=== PATIENT | male | born 1960 | race Caucasian/White ===

== ENCOUNTER 2016-10-27 10:32 | Emergency (ER) | payer BC, MEDICARE ==
[~2016-10-27] VITALS: Ht 200.7 cm; Wt 59.0 kg
[~2016-10-27 10:32] MED LIST: ALBU17AE3 IH; BUDE6HFA IH; CYCL10TA9 PO; HYDR-3061 PO; HYDR-3820 PO; LISI-552 PO; LISI20TA PO; OMEP20TA7 PO; PRD10T PO; RT-ALBUINH IH; SIMV20TA3 PO; TRAZ150T42 PO
--- NOTE | 2016-10-27 11:22 | ED Upper Extremity ---
General Chief Complaint: Upper Extremity Stated Complaint: LT ARM PAIN//FALL Nursing Triage Note: AMB TO ED FELL LAST NIGHT ON L ELBOW SWELLING AND PAIN AT SITE. Nursing Sepsis Screen: No Definite Risk Source: patient Exam Limitations: no limitations History of Present Illness Time seen by provider: 11:19 Initial Comments This 56-year-old white male presents after he sustained an injury to his left elbow last night when he inadvertently slipped and fell striking the olecranon of his left elbow. The patient also sustained an abrasion anterior aspect of his left knee. The patient's pain is primarily over the left elbow. Other than abrasion left knee the patient has no complaints and does not want to have the left knee x-rayed. The patient's last tetanus shot was more than 5 years ago. Patient's complaint of sharp nonradiating severe pain in the left elbow made worse with pronation and supination. Patient denies associated injury to the left shoulder or wrist. Patient denies other injury and his accident. Allergies and Home Medications Allergies Coded Allergies: No Known Drug Allergies (Verified , 01/28/08) Home Medications Albuterol Sulfate 8.5 Gm Hfa.aer.ad, 1-2 PUFF IH PRN, (Reported) Budesonide/Formoterol Fumarate 10.2 Gm Hfa.aer.ad, 2 PUFF IH BID, (Reported) Hydrocodone/Acetaminophen 1 Each Tablet, 1 TAB PO EVERY 4-6 HOURS, (Reported) LAST FILLED 02/17/15 #120 Lisinopril 20 Mg Tablet, 20 MG PO DAILY, (Reported) Omeprazole 20 Mg Tablet.dr, 20 MG PO DAILY, (Reported) Simvastatin 20 Mg Tablet, 20 MG PO DAILY, (Reported) Trazodone Hcl 150 Mg Tablet, 150 MG PO HS, (Reported) Constitutional: No chills, No fever EENTM: no symptoms reported Respiratory: No cough Cardiovascular: No chest pain Gastrointestinal: No nausea, No vomiting Genitourinary: no symptoms reported Musculoskeletal: see HPI, joint pain (left elbow.) Skin: other (abrasion left knee.) Psychiatric/Neurological: No Symptoms Reported Past Ipoqlsh-Kfcxyt-Xndpht Hx Patient Social History Alcohol Use: Occasionally Uses Recreational Drug Use: No Smoking Status: Current Everyday Smoker Type Used: Cigarettes Recent Foreign Travel: No Contact w/Someone Who Travel: No Recent Infectious Disease Expo: No Recent Hopitalizations: Yes Immunizations Up To Date Date of Pneumonia Vaccine: Mar 06, 2014 Date of Influenza Vaccine: Feb 11, 2015 Surgeries HX Surgeries: Yes (2 NECK SX, 2 HERNIA SX, R HAND SX, LEG SKIN GRAFTS) Respiratory Hx Respiratory Disorders: Yes (COPD, SEASON ALLERGIES) Respiratory Disorders: COPD Cardiovascular Hx Cardiac Disorders: No Cardiac Disorders: Hypertension Neurological Hx Neurological Disorders: No Reproductive System Hx Reproductive Disorders: No Sexually Transmitted Disease: No HIV/AIDS: No Genitourinary Hx Genitourinary Disorders: No Gastrointestinal Hx Gastrointestinal Disorders: No Gastrointestinal Disorders: Gastroesophageal Reflux Musculoskeletal Hx Musculoskeletal Disorders: Yes (CHRONIC NECK PAIN, ARTHRITIS BACK) Endocrine Hx Endocrine Disorders: No HEENT HX ENT Disorders: No Cancer Hx Cancer: No Psychosocial Hx Psychiatric Problems: Yes Behavioral Health Disorders: Depression Integumentary HX Skin/Integumentary Disorder: Yes (DERMATITIS) Blood Transfusions Hx Blood Disorders: No Adverse Reaction to a Blood Tr: No Reviewed Nursing Assessment Reviewed/Agree w Nursing PMH: Yes Family Medical History Significant Family History: No Pertinent Family Hx Family Medial History: Patient reports no known family medical history. Physical Exam Vital Signs Vital Sign - Last 12Hours 10/27/16 10:40 Temp 99.0 Pulse 140 Resp 18 B/P (MAP) 146/114 Capillary Refill : Less Than 3 Seconds General Appearance: mild distress HEENT: normal ENT inspection Neck: normal inspection Cardiovascular: regular rate, rhythm Respiratory: lungs clear Gastrointestinal: non tender Back: normal inspection Shoulder: normal inspection, non-tender, no evidence of injury Elbow/Forearm: Left, ecchymosis, pain Wrist: Yes normal inspection, Yes non-tender, Yes no evidence of injury Hand: normal inspection, non-tender, no evidence of injury Neurologic/Tendon: normal sensation, normal motor functions Neurologic/Psychiatric: no motor/sensory deficits, alert, normal mood/affect, oriented x 3 Skin: other (abrasion anterior aspect left knee) Progress/Results/Core Measures Results/Orders My Orders Orders - DOE COLON MD Fentanyl Injection (Sublimaze Injection (10/27/16 11:30) Dipht,Pertuss(Acell),Tet Adult (Boostrix (10/27/16 11:30) Elbow, Left, 3 Views (10/27/16 11:17) Medications Given in ED Current Medications Medications Dose Ordered Sig/Adilson Route Start Time Stop Time Status Last Admin Dose Admin Diphtheria/ Tetanus/Acell Pertussis 0.5 ml ONCE ONCE IM 10/27/16 11:30 10/27/16 11:31 DC 10/27/16 11:37 0.5 ML Fentanyl Citrate 50 mcg ONCE ONCE IJ 10/27/16 11:30 10/27/16 11:31 DC 10/27/16 11:35 50 MCG Vital Signs/I&O Vital Sign - Last 12Hours 10/27/16 10:40 Temp 99.0 Pulse 140 Resp 18 B/P (MAP) 146/114 Blood Pressure Mean: 125 Progress Note : Time: 12:19 Progress Note Patient received TDap and IM Fentanyl with good improvement in his discomfort. X-ray of the left elbow demonstrated a significant effusion but no evidence of fracture or dislocation. Patient's left arm was placed in a sling. The abrasion to the left knee was cleaned and dressed. Departure Impression Impression: Primary Impression: Elbow contusion Qualified Codes: S50.02XA - Contusion of left elbow, initial encounter Additional Impression: Knee abrasion Qualified Codes: S80.212A - Abrasion, left knee, initial encounter Disposition: HOME, SELF-CARE Condition: Improved Departure-Patient Inst. Decision time for Depature: 12:21 Referrals: ARAM ARAYA DO (PCP/Family) Primary Care Physician Patient Instructions: Contusion (DC) Add. Discharge Instructions: Vicodin for pain. Sling for comfort. Close follow-up with your doctor on Sunday. Return if any problems. All discharge instructions reviewed with patient and/or family. Voiced understanding. DOE COLON MD Oct 27, 2016 11:22
[2016-10-27] MEDS ORDERED: fentaNYL INJECTION 100 MCG/2 ML AMP IJ ONE (11:30)
[2016-10-27] MEDS ORDERED: TETANUS,DIPTH,PERTUSS P/F (BOOSTRIX) 0.5 ML VIAL IM ONE (11:30)
--- NOTE | 2016-10-27 12:08 | Diagnostic Imaging Report ---
INDICATION: Slipped on concrete and landed on elbow. FINDINGS: There is a large joint effusion present. Radius and ulna are in good alignment with the capitellum and trochlea. No fractures are demonstrated. There is a large enthesophyte along the triceps tendon attachment. There is mild soft tissue calcification also along the medial collateral ligament at the humeral epicondyle. IMPRESSION: 1. There is rather large joint effusion noted. 2. No fractures or dislocations demonstrated. Dictated by: Dictated on workstation # [id number]
[2016-10-27 12:46] VITALS: BP 172/111
== END 2016-10-27 12:46 | disposition home or self-care (01) ==
LOC: EDUNIT# 10:32 → ER 10:35
DX: S50.02XA Contusion of left elbow, initial encounter (principal); S80.212A Abrasion, left knee, initial encounter; J44.9 Chronic obstructive pulmonary disease, unspecified; I10 Essential (primary) hypertension; F17.210 Nicotine dependence, cigarettes, uncomplicated; W01.10XA Fall on same level from slipping, tripping and stumbling with subsequent striking against unspecified object, initial encounter
CPT/HCPCS: 73080; 90715; 99282

== ENCOUNTER 2017-05-03 13:39 | Inpatient (IN) | payer BC, MEDICARE ==
[2017-05-03] VITALS (8 sets, daily range): BP systolic 132–146; BP diastolic 94–109
[~2017-05-03] VITALS: Ht 175.3 cm; Wt 53.5 kg
--- OUTSIDE RECORDS SUMMARY | 2017-05-03 14:42 | XMS REPORT | Continuity of Care Document ---
Author Author [facility] Organization [facility] Address Unknown Phone Unavailable Allergies Active Description Code Type Severity Reaction Onset Reported/Identified Relationship to Patient Clinical Status Yes No Known Drug Allergies [id number] Drug Allergy Unknown N/A 12/03/2015 Medications There is no data. Problems Date Dx Coded Attending Type Code Diagnosis Diagnosed By 02/05/2012 Ot 211.3 BENIGN NEOPLASM LG BOWEL 02/05/2012 Ot 493.90 ASTHMA, UNSPECIFIED 02/05/2012 Ot V16.0 FAMILY HX-GI MALIGNANCY 02/05/2012 Ot V58.69 OTH MED,LT, CURRENT USE 02/05/2012 Ot V76.51 SCREEN MAL NEOP-COLON 03/01/2012 Ot 351.0 MEJIA'S PALSY 03/01/2012 Ot 782.0 SKIN SENSATION DISTURB 03/01/2012 Ot V04.81 ND FOR PROPHYLACTIC VACCIN AND INOCULATI 02/19/2015 Ot V72.84 03/04/2015 ARAM ARAYA DO Ot F17.200 03/04/2015 ARAM ARAYA DO Ot R63.4 03/11/2015 ARAM ARAYA DO Ot F17.200 03/11/2015 ARAM ARAYA DO Ot R63.4 04/08/2015 ARAM ARAYA DO Ot F17.200 04/08/2015 ARAM ARAYA DO Ot R63.4 04/08/2015 ARAM ARAYA DO Ot F17.200 04/08/2015 ARAM ARAYA DO Ot R63.4 04/08/2015 ARAM ARAYA DO Ot F17.200 04/08/2015 ARAM ARAYA DO Ot R63.4 04/09/2015 ARAM ARAYA DO Ot E78.5 HYPERLIPIDEMIA, UNSPECIFIED 04/09/2015 ARAM ARAYA DO Ot E87.1 HYPO-OSMOLALITY AND HYPONATREMIA 04/09/2015 ARAM ARAYA DO Ot F10.10 ALCOHOL ABUSE, UNCOMPLICATED 04/09/2015 ARAM ARAYA DO Ot F17.210 NICOTINE DEPENDENCE, CIGARETTES, UNCOMPL 04/09/2015 ARAM ARAYA DO Ot I10 ESSENTIAL (PRIMARY) HYPERTENSION 04/09/2015 ARAM ARAYA DO Ot I25.10 ATHSCL HEART DISEASE OF [place] CORONARY 04/09/2015 ARAM ARAYA DO Ot J44.9 CHRONIC OBSTRUCTIVE PULMONARY DISEASE, U 04/09/2015 ARAM ARAYA DO Ot R07.9 CHEST PAIN, UNSPECIFIED 04/09/2015 ARAM ARAYA DO Ot Z82.49 FAMILY HX OF ISCHEM HEART DIS AND OTH DI 04/09/2015 AARM ARAYA DO Ot E78.5 04/09/2015 ARAM ARAYA DO Ot E87.1 04/09/2015 ARAM ARAYA DO Ot F10.10 04/09/2015 ARAM ARAYA DO Ot F17.210 04/09/2015 ARAM ARAYA DO Ot I10 04/09/2015 ARAM ARAYA DO Ot I25.10 04/09/2015 ARAM ARAYA DO Ot J44.9 04/09/2015 ARAM ARAYA DO Ot R07.9 04/09/2015 ARAM ARAYA DO Ot Z82.49 04/15/2015 ARAM ARAYA DO Ot F17.200 04/15/2015 ARAM ARAYA DO Ot R63.4 04/15/2015 Ot V72.84 04/15/2015 ARAM ARAYA DO Ot F17.200 04/15/2015 ARAYAARAM OAKES DO Ot R63.4 04/27/2015 ARAYAARAM OAKES DO Ot F17.200 04/27/2015 ARAYAARAM OAKES DO Ot R63.4 04/27/2015 DEMETRIA VALDERRAMA FACC, NIRAV FACP CCDS Ot J43.8 04/27/2015 DEMETRIA VALDERRAMA FACGriselda, ALI FACP CCDS Ot R06.02 04/27/2015 DEMERTIA VALDERRAMA FACC, ALI FACP CCDS Ot R07.89 04/29/2015 DEMETRIA VALDERRAMA FACGriselda, NIRAV FACP CCDS Ot J43.8 04/29/2015 DEMETRIA VALDERRAMA [facility], ALI FACP CCDS Ot R06.02 04/29/2015 DEMETRIA VALDERRAMA FAC, ALI FACP CCDS Ot R07.89 05/13/2015 DEMETRIA VALDERRAMA FAC, ALI FACP CCDS Ot J43.8 05/13/2015 DEMETRIA VALDERRAMA FAC, ALI FACP CCDS Ot R06.02 05/13/2015 DEMETRIA VALDERRAMA FAC, ALI FACP CCDS Ot R07.89 05/25/2015 ARAM ARAYA DO Ot M79.674 06/02/2015 ARAM ARAYA DO Ot M79.674 06/09/2015 ARAM ARAYA DO Ot F17.200 06/09/2015 ARAM ARAYA DO Ot R63.4 06/09/2015 DEMETRIA ABEBE, NIRAV ABEBEP CCDS Ot J43.8 06/09/2015 DEMETRIA VALDERRAMA [facility], NIRAV FACP CCDS Ot R06.02 06/09/2015 DEMETRIA ABEBE, NIRAV FACP CCDS Ot R07.89 06/09/2015 ARAM ARAYA DO Ot M79.674 08/19/2015 ARAM ARAYA DO Ot M79.674 12/02/2015 DOE TORRES MD Ot Z01.818 ENCOUNTER FOR OTHER PREPROCEDURAL EXAMIN 12/02/2015 DOE TORRES MD Ot Z01.818 ENCOUNTER FOR OTHER PREPROCEDURAL EXAMIN 12/03/2015 DOE TORRES MD Ot K62.1 RECTAL POLYP 12/03/2015 DOE TORRES MD Ot Z12.11 ENCOUNTER FOR SCREENING FOR MALIGNANT NE 12/10/2015 DOE TORRES MD Ot K62.1 RECTAL POLYP 12/10/2015 DOE TORRES MD Ot Z12.11 ENCOUNTER FOR SCREENING FOR MALIGNANT NE 12/22/2015 Ot V72.84 EXAM PRE- OPERATIVE NOS 12/22/2015 ARAM ARAYA DO Ot F17.200 NICOTINE DEPENDENCE, UNSPECIFIED, UNCOMP 12/22/2015 ARAM ARAYA DO Ot R63.4 ABNORMAL WEIGHT LOSS 12/22/2015 DEMETRIA VALDERRAMA [facility], NIRAV FACP CCDS Ot J43.8 OTHER EMPHYSEMA 12/22/2015 DEMETRIA ABEBE, ALI FACP CCDS Ot R06.02 SHORTNESS OF BREATH 12/22/2015 DEMETRIA VALDERRAMA FACC, ALI FACP CCDS Ot R07.89 OTHER CHEST PAIN 12/22/2015 ARAM ARAYA DO Ot M79.674 PAIN IN RIGHT TOE(S) 01/07/2016 ARAM ARAYA DO Ot F17.200 NICOTINE DEPENDENCE, UNSPECIFIED, UNCOMP 01/07/2016 ARAM ARAYA DO Ot R63.4 ABNORMAL WEIGHT LOSS 01/07/2016 DEMETRIA VALDERRAMA FACC, ALI FACP CCDS Ot J43.8 OTHER EMPHYSEMA 01/07/2016 DEMETRIA VALDERRAMA FACC, ALI FACP CCDS Ot R06.02 SHORTNESS OF BREATH 01/07/2016 DEMETRIA VALDERRAMA FACC, ALI FACP CCDS Ot R07.89 OTHER CHEST PAIN 01/07/2016 ARAM ARAYA DO Ot M79.674 PAIN IN RIGHT TOE(S) 04/21/2016 ARAM ARAYA DO Ot F17.200 NICOTINE DEPENDENCE, UNSPECIFIED, UNCOMP 04/21/2016 ARAM ARAYA DO Ot R63.4 ABNORMAL WEIGHT LOSS 04/21/2016 DEMETRIA VALDERRAMA FACC, ALI FACP CCDS Ot J43.8 OTHER EMPHYSEMA 04/21/2016 DEMETRIA VALDERRAMA FACC, ALI FACP CCDS Ot R06.02 SHORTNESS OF BREATH 04/21/2016 DEMETRIA VALDERRAMA FACC, ALI FACP CCDS Ot R07.89 OTHER CHEST PAIN 04/21/2016 ARAM ARAYA DO Ot M79.674 PAIN IN RIGHT TOE(S) 07/20/2016 DEMETRIA VALDERRAMA FACC ALI FACP CCDS Ot J43.8 OTHER EMPHYSEMA 07/20/2016 DEMETRIA VALDERRAMA FACC, ALI FACP CCDS Ot R06.02 SHORTNESS OF BREATH 07/20/2016 DEMETRIA VALDERRAMA FACC, ALI FACP CCDS Ot R07.89 OTHER CHEST PAIN 07/20/2016 ARAM ARAYA DO Ot M79.674 PAIN IN RIGHT TOE(S) 09/11/2016 DEMETRIA VALDERRAMA FACC ALI FACP CCDS Ot J43.8 OTHER EMPHYSEMA 09/11/2016 DEMETRIA VALDERRAMA FACC, ALI FACP CCDS Ot R06.02 SHORTNESS OF BREATH 09/11/2016 DEMETRIA VALDERRAMA FACC, ALI FACP CCDS Ot R07.89 OTHER CHEST PAIN 10/27/2016 ARAM ARAYA DO Ot F17.200 NICOTINE DEPENDENCE, UNSPECIFIED, UNCOMP 10/27/2016 ARAM ARAYA DO Ot R63.4 ABNORMAL WEIGHT LOSS 10/27/2016 DEMETRIA VALDERRAMA [facility] J43.8 OTHER EMPHYSEMA 10/27/2016 DEMETRIA VALDERRAMA FAC, [facility] Ot R06.02 SHORTNESS OF BREATH 10/27/2016 DEMETRIA VALDERRAMA [facility], [facility] Ot R07.89 OTHER CHEST PAIN 10/27/2016 ARAM ARAYA DO Ot M79.674 PAIN IN RIGHT TOE(S) 10/27/2016 DOE COLON MD Ot F17.210 NICOTINE DEPENDENCE, CIGARETTES, UNCOMPL 10/27/2016 DOE COLON MD Ot I10 ESSENTIAL (PRIMARY) HYPERTENSION 10/27/2016 DOE COLON MD Ot J44.9 CHRONIC OBSTRUCTIVE PULMONARY DISEASE, U 10/27/2016 DOE COLON MD Ot S50.02XA CONTUSION OF LEFT ELBOW, INITIAL ENCOUNT 10/27/2016 DOE COLON MD Ot S59.902A UNSPECIFIED INJURY OF LEFT ELBOW, INITIA 10/27/2016 DOE COLON MD Ot S80.212A ABRASION, LEFT KNEE, INITIAL ENCOUNTER 10/27/2016 DOE COLON MD Ot W01.10XA FALL SAME LEV FROM SLIP/TRIP W STRIKE AG 11/03/2016 DOE COLON MD Ot F17.210 NICOTINE DEPENDENCE, CIGARETTES, UNCOMPL 11/03/2016 DOE COLON MD Ot I10 ESSENTIAL (PRIMARY) HYPERTENSION 11/03/2016 DOE COLON MD Ot J44.9 CHRONIC OBSTRUCTIVE PULMONARY DISEASE, U 11/03/2016 DOE COLON MD Ot S50.02XA CONTUSION OF LEFT ELBOW, INITIAL ENCOUNT 11/03/2016 DOE COLON MD Ot S59.902A UNSPECIFIED INJURY OF LEFT ELBOW, INITIA 11/03/2016 DOE COLON MD Ot S80.212A ABRASION, LEFT KNEE, INITIAL ENCOUNTER 11/03/2016 DOE COLON MD Ot W01.10XA FALL SAME LEV FROM SLIP/TRIP W STRIKE AG 12/20/2016 ARAM ARAYA DO Ot F17.200 NICOTINE DEPENDENCE, UNSPECIFIED, UNCOMP 12/20/2016 ARAM ARAYA DO Ot R63.4 ABNORMAL WEIGHT LOSS 12/20/2016 DEMETRIA VALDERRAMA FACC, NIRAV ABEBEP CCDS Ot J43.8 OTHER EMPHYSEMA 12/20/2016 DEMETRIA VALDERRAMA FACC, NIRAV [place] CCDS Ot R06.02 SHORTNESS OF BREATH 12/20/2016 DEMETRIA VALDERRAMA FACC, NIRAV [place] CCDS Ot R07.89 OTHER CHEST PAIN 12/20/2016 ARAM ARAYA DO Ot M79.674 PAIN IN RIGHT TOE(S) Procedures There is no data. Results There is no data. Encounters ACCT No. Visit Date/Time Discharge Status Pt. Type Provider Facility Loc./Unit Complaint [id number] 10/27/2016 10:35:00 10/27/2016 12:46:00 DIS Emergency DOE COLON MD [facility] ER LT ARM PAIN//FALL [id number] 12/22/2015 09:20:00 12/22/2015 23:59:59 CLS Preadmit ARAM ARAYA DO [facility] REHAB BACK PAIN WITH RADICULOPATHY [id number] 12/03/2015 07:41:00 12/03/2015 11:00:00 DIS Outpatient DOE TORRES MD [facility] SDC HX COLON POLPYS [id number] 12/02/2015 14:28:00 12/02/2015 14:31:00 DIS Outpatient DOE TORRES MD [facility] PREOP HX COLON POLPYS [id number] 05/20/2015 10:47:00 05/20/2015 23:59:59 CLS Outpatient ARAM ARAYA DO [facility] RAD PAIN RIGHT 5TH MTP JOINT [id number] 04/15/2015 09:15:00 04/15/2015 23:59:59 CLS Outpatient NIRAV AUGUSTIN MD, FACC, FACP CCDS [facility] CARD SOB,CHEST DISCOMFORT,COPD [id number] 04/08/2015 20:13:00 04/09/2015 11:55:00 DIS Inpatient ARAM ARAYA DO [facility] 4TH HYPONATREMIA,CHEST PAIN,ETOH ABUSE [id number] 02/19/2015 09:47:00 02/19/2015 23:59:59 CLS Outpatient ARAM ARAYA DO [facility] RAD SMOKER,WEIGHT LOSS [id number] 02/29/2012 22:36:00 Document Registration [id number] 02/05/2012 08:59:00 Document Registration [id number] 02/02/2012 08:12:00 Document Registration
[2017-05-03] MEDS ORDERED: DILTIAZEM IV FOR DRIP 125 MG in NS (IVPB) 100 ML IV SCH (14:45)
[2017-05-03 15:11] LABS: BASOPHILS % (AUTO) 0 % (0-10); EOSINOPHILS % (AUTO) 0 % (0-10); LYMPHOCYTES # (AUTO) 0.9 X 10^3 (1.0-4.0); LYMPHOCYTES % (AUTO) 13 % (12-44); MEAN CORPUSCULAR HEMOGLOBIN 38 PG (25-34); MEAN CORPUSCULAR HGB CONC 36 G/DL (32-36); MEAN CORPUSCULAR VOLUME 103 FL (80-99); MEAN PLATELET VOLUME 8.5 FL (7.4-10.4); MONOCYTES # (AUTO) 0.6 X 10^3 (0.0-1.0); MONOCYTES % (AUTO) 9 % (0-12); NEUTROPHILS # (AUTO) 5.2 X 10^3 (1.8-7.8); NEUTROPHILS % (AUTO) 77 % (42-75); PLATELET COUNT 187 10^3/uL (130-400); RED CELL DISTRIBUTION WIDTH 12.1 % (10.0-14.5); WHITE BLOOD COUNT 6.8 10^3/uL (4.3-11.0)
--- NOTE | 2017-05-03 15:22 | Consultation-Cardiology ---
HPI-Cardiology Cardiology Consultation: Date of Consultation 05/03/17 Time Seen by Provider: 15:45 Date of Admission 05-03-17 Attending Physician America Wood MD Admitting Physician Chet Rodgers DO Consulting Physician Brigido Martinez MD HPI: Chief Complaint: Tachycardia Mr. Wills is a 57 year old male who has been admitted to ICU [address] Rodgers's office. He reports he was seen at Dr. Escobar office today for a routine check up. He reports he was found to have a fast HR in the office of approx 158. He states he has not been having any palpitations recently. He reports he has had palpitations in the past, but felt it was d/t his COPD. No syncope or near syncope. He reports chronic dyspnea d/t his CODP. He feels the SOB has been a little bit worse the last few days. He does report diarrhea for the last couple days after eating [place] food. No c/o n/v. He reports he was carrying a metal toy truck las week and he became dizzy. He reports he fell landing in the truck with the right side of his chest. He states the right side is tender to palpation and movement. He does not report any LE edema. He continues to smoke cigs. Review of Systems-Cardiology Review of Systems Constitutional: malaise Eyes: No blindness, No blurred vision Ears/Nose/Throat: No nasal drainage, No throat pain Respiratory: As described under HPI Cardiovascular: As described under HPI Gastrointestinal: diarrhea Genitourinary: No dysuria Musculoskeletal: As describe under HPI Skin: No rash, No ulcerations Psychiatric/Neurological: No focal weakness, No syncope Hematologic: No bleeding abnormalities YHD-Qqwhhb-Nanuaw Hx Patient Social History Type Used: Cigarettes Recent Foreign Travel: No Immunizations Up To Date Date of Pneumonia Vaccine: Mar 06, 2014 Date of Influenza Vaccine: Feb 11, 2015 Past Medical History PMH As described under Assessment. Family Medical History Family Medical History: He does not report any family h/o CAD or premature SCD. Family History: Patient reports no known family medical history. Allergies and Home Medications Allergies Coded Allergies: No Known Drug Allergies (Verified , 01/28/08) Home Medications Albuterol Sulfate 8.5 Gm Hfa.aer.ad, 1-2 PUFF IH Q4H PRN for SHORTNESS OF BREATH , (Reported) Apixaban 5 Mg Tablet, 5 MG PO BID, #60 Ref 3 Prescribed by: DEDRA PERDUE on 05/04/17 0857 Budesonide/Formoterol Fumarate 10.2 Gm Hfa.aer.ad, 2 PUFF IH BID, (Reported) Cetirizine HCl 10 Mg Tablet, 10 MG PO DAILY, (Reported) Clonazepam 1 Mg Tablet, 1 MG PO HS, (Reported) Hydrocodone/Acetaminophen 1 Each Tablet, 1 TAB PO Q6H PRN for PAIN-MODERATE, ( Reported) Lisinopril 40 Mg Tablet, 40 MG PO HS, (Reported) Meloxicam 7.5 Mg Tablet, 7.5 MG PO DAILY PRN for PAIN-MILD, (Reported) Metoprolol Succinate 100 Mg Tab.er.24h, 100 MG PO DAILY, #30 Ref 5 Prescribed by: DEDRA PERDUE on 05/04/1757 Omeprazole 20 Mg Tablet.dr, 20 MG PO DAILY, (Reported) Trazodone HCl 100 Mg Tablet, 100 MG PO HS, (Reported) Physical Exam-Cardiology Physical Exam Vital Signs/I&O Vital Sign - Last 12Hours 05/03/17 05/04/17 05/04/17 05/04/17 21:00 00:00 00:28 01:00 Temp 98.3 Pulse 69 82 61 Resp 10 16 B/P (MAP) 134/94 (107) 111/63 (79) Pulse Ox 98 96 O2 Delivery Room Air Room Air Room Air 05/04/17 05/04/17 05/04/17 05/04/17 03:36 04:00 07:00 08:07 Temp 97.2 98.4 Pulse 62 64 66 Resp 16 16 B/P (MAP) 111/77 (88) 125/82 (96) Pulse Ox 98 98 O2 Delivery Room Air Room Air Room Air 05/04/17 08:15 O2 Delivery Room Air Intake and Output 05/04/17 00:00 Intake Total 1000 ml Output Total 1250 ml Balance -250 ml Capillary Refill : Constitutional: AAO x 3 HEENT: EOMI, hearing is well preserved, oral hygience is good, No xanthelasmas are seen Neck: No carotid bruit Respiratory: No accessory muscle use, No respiratory distress, chest expansion is symmetric, chest is bilaterally symmetric, lungs clear to auscultation, other (prolonged expiratory phase) Cardiovascular: regular rate-rhythm, No JVD, No edema, tachycardia Gastrointestinal: soft, round, audible bowel sounds Rectal: deferred Extremities: no lower extremity edema bilateral Neurologic/Psychiatric: grossly intact Skin: No rash, No ulcerations Data Review Labs Laboratory Tests 05/03/17 15:01: White Blood Count 6.8, Red Blood Count 3.60L, Hemoglobin 13.5, Hematocrit 37L, Mean Corpuscular Volume 103H, Mean Corpuscular Hemoglobin 38H, Mean Corpuscular Hemoglobin Concent 36, Red Cell Distribution Width 12.1, Platelet Count 187, Mean Platelet Volume 8.5, Neutrophils (%) (Auto) 77H, Lymphocytes (%) (Auto) 13 , Monocytes (%) (Auto) 9, Eosinophils (%) (Auto) 0, Basophils (%) (Auto) 0, Neutrophils # (Auto) 5.2, Lymphocytes # (Auto) 0.9L, Monocytes # (Auto) 0.6, Eosinophils # (Auto) 0.0, Basophils # (Auto) 0.0, Prothrombin Time 12.6, INR Comment 0.9, Sodium Level 128L, Potassium Level 4.3, Chloride Level 93L, Carbon Dioxide Level 27, Anion Gap 8, Blood Urea Nitrogen 8, Creatinine 0.75, Estimat Glomerular Filtration Rate > 60, BUN/Creatinine Ratio 11, Glucose Level 90, Calcium Level 8.9, Total Bilirubin 0.8, Aspartate Amino Transf (AST/SGOT) 28, Alanine Aminotransferase (ALT/SGPT) 20, Alkaline Phosphatase 82, Total Protein 7.5, Albumin 4.1, Serum Alcohol 51H 05/03/17 15:25: Thyroid Stimulating Hormone (TSH) 0.53 05/04/17 04:30: White Blood Count 4.0L, Red Blood Count 3.28L, Hemoglobin 12.1L, Hematocrit 34L , Mean Corpuscular Volume 104H, Mean Corpuscular Hemoglobin 37H, Mean Corpuscular Hemoglobin Concent 35, Red Cell Distribution Width 12.2, Platelet Count 157, Mean Platelet Volume 9.1, Neutrophils (%) (Auto) 49, Lymphocytes (%) (Auto) 35, Monocytes (%) (Auto) 13H, Eosinophils (%) (Auto) 3, Basophils (%) ( Auto) 1, Neutrophils # (Auto) 2.0, Lymphocytes # (Auto) 1.4, Monocytes # (Auto) 0.5, Eosinophils # (Auto) 0.1, Basophils # (Auto) 0.0, Prothrombin Time 14.2, INR Comment 1.1, Sodium Level 133L, Potassium Level 4.2, Chloride Level 99, Carbon Dioxide Level 25, Anion Gap 9, Blood Urea Nitrogen 10, Creatinine 0.75, Estimat Glomerular Filtration Rate > 60, BUN/Creatinine Ratio 13, Glucose Level 78, Calcium Level 8.1L ECG Impression ECG Initial ECG Rhythm: S.Tach A/P-Cardiology Assessment/Admission Diagnosis New onset of reported atrial flutter with RVR MPI of 04/15/15 does not show myocard ischemia or infarction; LVEF is 66% Echo of 04/15/15 shows LVEF 50-55%, triv to mild MR, PASP 25-30 mmHg COPD Chronic tobacco use, cessation advised Hypertension Degenerative disc disease of the cervical spine Chronic ETOH abuse Right sided chest pain following a non-syncopal fall last week (reproducible with palpation) Hyponatremia HTN DEDRA PERDUEP May 03, 2017 15:22
[2017-05-03 15:23] LABS: INR 0.9 (0.8-1.4); PROTHROMBIN TIME PATIENT 12.6 SEC (12.2-14.7)
[2017-05-03 15:30] LABS: ALANINE AMINOTRANSFERASE 20 U/L (0-55); ALBUMIN 4.1 GM/DL (3.2-4.5); ANION GAP 8 MMOL/L (5-14); ASPARTATE AMINO TRANSFERASE 28 U/L (5-34); BILIRUBIN,TOTAL 0.8 MG/DL (0.1-1.0); BLOOD UREA NITROGEN 8 MG/DL (7-18); BUN/CREATININE RATIO 11; CALCIUM 8.9 MG/DL (8.5-10.1); CARBON DIOXIDE 27 MMOL/L (21-32); CHLORIDE 93 MMOL/L (98-107); CREATININE SERUM 0.75 MG/DL (0.60-1.30); GFR ESTIMATED > 60; GLUCOSE 90 MG/DL (70-105); POTASSIUM 4.3 MMOL/L (3.6-5.0); SODIUM 128 MMOL/L (135-145); TOTAL PROTEIN 7.5 GM/DL (6.4-8.2)
[2017-05-03] MEDS ORDERED: RT-ALBUTEROL SULF 2.5 MG/3 ML PRE-MIX VIAL INH PRN ×2 (16:00→16:15)
[2017-05-03] MEDS ORDERED: RT-ALBUTEROL SULF 2.5 MG/3 ML PRE-MIX VIAL INH SCH (16:15)
[2017-05-03] MEDS ORDERED: CATHETER FLUSH 10 ML SYR IV PRN (16:15)
[2017-05-03] MEDS ORDERED: TRAZ100T92 PO (16:16)
[2017-05-03] MEDS ORDERED: CLON1TAB3 PO (16:16)
[2017-05-03] MEDS ORDERED: HYDR-3816 PO (16:16)
[2017-05-03] MEDS ORDERED: LISI40TA PO (16:16)
[2017-05-03] MEDS ORDERED: BUDE10.2 IH (16:23)
[2017-05-03] MEDS ORDERED: MELO7.5T46 PO (16:23)
[2017-05-03] MEDS ORDERED: CETI10TA20 PO (16:23)
--- NOTE | 2017-05-03 16:23 | History & Physical-Hospitalist ---
HPI History of Present Illness: HPI/Chief Complaint Pt is a 57yoCM with a PMH of HTN, COPD, and arthritis who presented to the ICU as a direct admission for new on set a-flutter with RVR. He reports he went to his PCPs office for a regular check up and had no complaints but was found to have a pulse of 155. EKG was obtained which revealed a-flutter with RVR. He reports he had a history of "irregular heart rate" and wore a holter monitor in the past but was told it was normal and didn't need to take any medications or follow up. He reports some intermittent palpitations but thought it was due to his COPD. He denies any Chest pain or worsening shortness of breath but always feels short of breath due to his COPD. Source: patient Date Seen 05/03/17 Time Seen by Provider: 15:45 Attending Physician Gian Wood MD PCP Chet Rodgers DO Referring Physician Date of Admission May 03, 2017 at 2:38 pm Home Medications & Allergies Home Medications Reviewed patient Home Medication Reconciliation Form Allergies Allergies Coded Allergies No Known Drug Allergies (Verified01/28/08) Past Awcjytc-Sesrkm-Evpnet Hx Patient Social History Marrital Status: Alcohol Use: Regular Use Alcohol Beverage of Choice: Beer (3-4 beers per day) Smoking Status: Current Everyday Smoker Cigaretts per day: 10 Type Used: Cigarettes Recent Foreign Travel: No Contact w/other who traveled: No Recent Hopitalizations: Yes Immunizations Up To Date Date of Pneumonia Vaccine: Mar 06, 2014 Date of Influenza Vaccine: Feb 11, 2015 Surgeries Yes (2 NECK SX, 2 HERNIA SX, R HAND SX, LEG SKIN GRAFTS) Respiratory Yes (COPD, SEASON ALLERGIES) COPD Currently Using CPAP: No Currently Using BIPAP: No Cardiovascular No Hypertension Neurological No Reproductive System Hx Reproductive Disorders: No Sexually Transmitted Disease: No HIV/AIDS: No Gastrointestinal No Gastroesophageal Reflux Musculoskeletal Yes (CHRONIC NECK PAIN, ARTHRITIS BACK) Arthritis Endocrine History of Endocrine Disorders: No Cancer No Psychosocial History of Psychiatric Problem: Yes Behavioral Health Disorders: Depression Integumentary History of Skin or Integumenta: Yes (DERMATITIS) Blood Transfusions History of Blood Disorders: No Adverse Reaction to a Blood Tr: No Family Medical History Significant Family History: Heart Disease Family Hx: Patient reports no known family medical history. Review of Systems Constitutional: No chills, No fever EENTM: No blurred vision, No double vision, No nose congestion, No throat pain Respiratory: No cough, No dyspnea on exertion, short of breath Cardiovascular: No chest pain, No edema, palpitations Gastrointestinal: No abdominal pain, No constipation, No diarrhea, No nausea, No vomiting Genitourinary: No dysuria, No frequency Musculoskeletal: No joint pain, No muscle pain Skin: No lesions, No rash Psychiatric/Neurological: Denies Headache, Denies Numbness, Denies Tingling Physical Exam Physical Exam Vital Signs Vital Sign - Last 12Hours 05/03/17 05/03/17 15:01 16:03 Temp 98.8 Pulse 134 Resp 12 B/P (MAP) 141/109 (120) Pulse Ox 100 O2 Delivery Room Air FiO2 21 Capillary Refill : Less Than 3 Seconds General Appearance: No Apparent Distress, WD/WN HEENT: PERRL/EOMI, Moist Mucous Membranes Neck: Non Tender, Supple Respiratory: Chest Non Tender, No Accessory Muscle Use, No Respiratory Distress , Wheezing Cardiovascular: No Edema, No JVD, No Murmur, Normal Peripheral Pulses, Tachycardia Gastrointestinal: Normal Bowel Sounds, Non Tender, Soft Extremity: Normal Capillary Refill, No Calf Tenderness Neurologic/Psychiatric: Alert, Oriented x3, Normal Mood/Affect Skin: Normal Color, Warm/Dry Results Results/Procedures Lab Laboratory Tests 05/03/17 15:01 Assessment/Plan Admission Diagnosis a flutter with RVR Diagnosis/Problems Diagnosis/Problems (1) Atrial flutter with rapid ventricular response Status: Acute Assessment & Plan: New onset Cardizem gtt Echo ordered Will start Lovenox tonight once weight available Cardiology consulted, appreciate recs Check TSH (2) COPD (chronic obstructive pulmonary disease) Status: Chronic Assessment & Plan: Slight wheezing on exam Will resume home meds (Symbicort) On room air No increased cough or hypoxia- no signs of exacerbation Qualifiers: Qualified Codes: J44.9 - Chronic obstructive pulmonary disease, unspecified (3) Essential (primary) hypertension Assessment & Plan: Metoprolol Monitor while on cardizem (4) Alcohol abuse Status: Acute Assessment & Plan: CIWA assess (5) Tobacco abuse Assessment & Plan: Recommended cessation Clinical Quality Measures Smoking Cessation Counseling: Counseling-Symptomatic: 3-10 Minutes GIAN WOOD MD May 03, 2017 16:22
[2017-05-03] MEDS ORDERED: meTOprolol SUCCINATE 100 MG (TOPROL XL) TAB PO NR (16:30)
[2017-05-03] MEDS ORDERED: PATIENT MAY USE OWN MEDS, ALL MC SCH (16:30)
[2017-05-03] MEDS ORDERED: 1/2 NS IV SOLUTION 1,000 ML IV PRN (17:03)
[2017-05-03] MEDS ORDERED: LORazepam INJ 2 MG/ML (ATIVAN) VIAL IM/IV PRN (17:15)
[2017-05-03] MEDS ORDERED: D5 1/2 NS 1000 ML IV SOLUTION 1,000 ML IV PRN (17:15)
[2017-05-03] MEDS ORDERED: ONDANSETRON 4 MG/2 ML (SDV) Z0FRAN IV PRN (17:15)
[2017-05-03] MEDS ORDERED: ONDANSETRON 4 MG (ZOFRAN) ORAL DISSOLVE TAB SL PRN (17:15)
[2017-05-03] MEDS ORDERED: SENNA W/DOCUSATE (SENOKOT S) TABLET PO PRN (17:15)
[2017-05-03] MEDS ORDERED: LORazepam 1 MG (ATIVAN) TAB PO PRN (17:15)
[2017-05-03] MEDS ORDERED: LORazepam INJ 2 MG/ML (ATIVAN) VIAL IV PRN (17:15)
[2017-05-03] MEDS ORDERED: ANTACID SUSP 30 ML UDC (MYLANTA) PO PRN (17:15)
--- NOTE | 2017-05-03 17:57 | Consultation-Cardiology ---
HPI-Cardiology Cardiology Consultation: Date of Consultation 05/03/17 Time Seen by Provider: 17:20 Date of Admission Attending Physician America Wood MD Admitting Physician Chet Rodgers DO Consulting Physician NIRAV AUGUSTIN MD, MA, FACP, FACC, [facility], CCDS HPI: Chief Complaint: Tachycardia Mr. Wills is a 57 year old male who has been admitted to ICU [address] Rodgers's office. He reports he was seen at Dr. Escobar office today for a routine check up. He reports he was found to have a fast HR in the office of approx 158. He states he has not been having any palpitations recently. He reports he has had palpitations in the past, but felt it was d/t his COPD. No syncope or near syncope. He reports chronic dyspnea d/t his CODP. He feels the SOB has been a little bit worse the last few days. He does report diarrhea for the last couple days after eating [place] food. No c/o n/v. He reports he was carrying a metal toy truck las week and he became dizzy. He reports he fell landing in the truck with the right side of his chest. He states the right side is tender to palpation and movement. He does not report any LE edema. He continues to smoke cigs. Review of Systems-Cardiology Review of Systems Constitutional: malaise Eyes: No blindness, No blurred vision Ears/Nose/Throat: No nasal drainage, No throat pain Respiratory: As described under HPI Cardiovascular: As described under HPI Gastrointestinal: diarrhea Genitourinary: No dysuria Musculoskeletal: As describe under HPI Skin: No rash, No ulcerations Psychiatric/Neurological: No focal weakness, No syncope Hematologic: No bleeding abnormalities GCW-Rsysdf-Zhpraf Hx Patient Social History Marrital Status: Alcohol Use: Regular Use Smoking Status: Current Everyday Smoker Cigaretts per day: 10 Type Used: Cigarettes Recent Foreign Travel: No Immunizations Up To Date Date of Pneumonia Vaccine: Mar 06, 2014 Date of Influenza Vaccine: Feb 11, 2015 Past Medical History PMH As described under Assessment. Family Medical History Family Medical History: He does not report any family h/o CAD or premature SCD. Family History: Patient reports no known family medical history. Allergies and Home Medications Allergies Coded Allergies: No Known Drug Allergies (Verified , 01/28/08) Home Medications Albuterol Sulfate 8.5 Gm Hfa.aer.ad, 1-2 PUFF IH Q4H PRN for SHORTNESS OF BREATH , (Reported) Budesonide/Formoterol Fumarate 10.2 Gm Hfa.aer.ad, 2 PUFF IH BID, (Reported) Cetirizine HCl 10 Mg Tablet, 10 MG PO DAILY, (Reported) Clonazepam 1 Mg Tablet, 1 MG PO HS, (Reported) Hydrocodone/Acetaminophen 1 Each Tablet, 1 TAB PO Q6H PRN for PAIN-MODERATE, ( Reported) Lisinopril 40 Mg Tablet, 40 MG PO HS, (Reported) Meloxicam 7.5 Mg Tablet, 7.5 MG PO DAILY PRN for PAIN-MILD, (Reported) Omeprazole 20 Mg Tablet.dr, 20 MG PO DAILY, (Reported) Trazodone HCl 100 Mg Tablet, 100 MG PO HS, (Reported) Physical Exam-Cardiology Physical Exam Vital Signs/I&O Vital Sign - Last 12Hours 05/03/17 05/03/17 05/03/17 05/03/17 15:01 15:06 15:44 16:00 Temp 98.8 98.9 Pulse 134 120 122 123 Resp 12 12 15 B/P (MAP) 141/109 (120) 146/103 (117) Pulse Ox 100 100 100 O2 Delivery Room Air Room Air Room Air 05/03/17 05/03/17 16:03 17:00 Pulse 134 112 Resp 11 B/P (MAP) 138/101 (113) Pulse Ox 100 99 O2 Delivery Room Air FiO2 21 Capillary Refill : Less Than 3 Seconds Constitutional: AAO x 3 HEENT: EOMI, hearing is well preserved, oral hygience is good, No xanthelasmas are seen Neck: No carotid bruit Respiratory: No accessory muscle use, No respiratory distress, chest expansion is symmetric, chest is bilaterally symmetric, lungs clear to auscultation, other (prolonged expiratory phase) Cardiovascular: regular rate-rhythm, No JVD, No edema, tachycardia Gastrointestinal: soft, round, audible bowel sounds Rectal: deferred Extremities: no lower extremity edema bilateral Neurologic/Psychiatric: grossly intact Skin: No rash, No ulcerations Data Review Labs Laboratory Tests 05/03/17 15:01: White Blood Count 6.8, Red Blood Count 3.60L, Hemoglobin 13.5, Hematocrit 37L, Mean Corpuscular Volume 103H, Mean Corpuscular Hemoglobin 38H, Mean Corpuscular Hemoglobin Concent 36, Red Cell Distribution Width 12.1, Platelet Count 187, Mean Platelet Volume 8.5, Neutrophils (%) (Auto) 77H, Lymphocytes (%) (Auto) 13 , Monocytes (%) (Auto) 9, Eosinophils (%) (Auto) 0, Basophils (%) (Auto) 0, Neutrophils # (Auto) 5.2, Lymphocytes # (Auto) 0.9L, Monocytes # (Auto) 0.6, Eosinophils # (Auto) 0.0, Basophils # (Auto) 0.0, Prothrombin Time 12.6, INR Comment 0.9, Sodium Level 128L, Potassium Level 4.3, Chloride Level 93L, Carbon Dioxide Level 27, Anion Gap 8, Blood Urea Nitrogen 8, Creatinine 0.75, Estimat Glomerular Filtration Rate > 60, BUN/Creatinine Ratio 11, Glucose Level 90, Calcium Level 8.9, Total Bilirubin 0.8, Aspartate Amino Transf (AST/SGOT) 28, Alanine Aminotransferase (ALT/SGPT) 20, Alkaline Phosphatase 82, Total Protein 7.5, Albumin 4.1, Serum Alcohol 51H 05/03/17 15:25: Thyroid Stimulating Hormone (TSH) 0.53 A/P-Cardiology Assessment/Admission Diagnosis Newly diagnosed atrial tach/flutter with 2:1 AV conduction Mild hyponatremia of unclear etiology Echo of 05/03/17: LVEF 55-60%, PASP WNL MPI of 04/15/15 does not show myocard ischemia or infarction; LVEF is 66% COPD Chronic tobacco use, cessation advised Hypertension Degenerative disc disease of the cervical spine Chronic ETOH abuse Right sided chest pain following a non-syncopal fall last week (reproducible with palpation) Discussion and Recomendations * Beta-bon for vent rate control * Apixaban for stroke prophylaxis * We have advised cessation of tobacco and alcohol use * Monitor labs * Check TSH * I discussed his case with Dr Wood on the phone today Clinical Quality Measures Smoking Cessation Counseling: Counseling-Symptomatic: 3-10 Minutes NIRAV AUGUSTIN MD FACP [facility] CCDS May 03, 2017 17:57
[2017-05-03] MEDS ORDERED: meTOprolol SUCCINATE 100 MG (TOPROL XL) TAB PO ONE (18:00)
[2017-05-03] MEDS ORDERED: APIXABAN 5 MG (ELIQUIS) TABLET PO NR (18:00)
[2017-05-03] MEDS: NS IV 1000 ML 1,000 ML IV SCH (19:07)
[2017-05-03] MEDS ORDERED: RT-ADVAIR HFA 115/21 MCG PER PUFF IH SCH ×2 (20:00)
[2017-05-03] MEDS ORDERED: lisINopril 20 MG (ZESTRIL) TAB PO SCH (21:00)
[2017-05-03] MEDS ORDERED: traZODone 100 MG (DESYREL) TAB PO SCH (21:00)
[2017-05-03] MEDS ORDERED: RT-SYMBICORT 160/4.5 MCG INHALER PER PUFF IH SCH (21:00)
[2017-05-03] MEDS ORDERED: clonazePAM 1 MG (KlonoPIN) TAB PO SCH (21:00)
[2017-05-03] MEDS ORDERED: NON-FORMULARY MEDICATION 1 EA EA (Lisinopril 40 MG) PO SCH (21:00)
[2017-05-03] MEDS: HYDROcodone/APAP 7.5 MG/325 MG (LORTAB, LORCET PLUS) TABLET PO PRN (21:26)
[2017-05-03] MEDS: CATHETER FLUSH 10 ML SYR IV SCH (21:26)
[2017-05-04 00:28] VITALS: BP 111/63
[2017-05-04] MEDS: NS IV 1000 ML 1,000 ML IV SCH (03:34)
[2017-05-04] MEDS: HYDROcodone/APAP 7.5 MG/325 MG (LORTAB, LORCET PLUS) TABLET PO PRN (03:34)
[2017-05-04 03:36] VITALS: BP 111/77
[2017-05-04 05:24] LABS: BASOPHILS % (AUTO) 1 % (0-10); EOSINOPHILS # (AUTO) 0.1 10^3/uL (0.0-0.3); EOSINOPHILS % (AUTO) 3 % (0-10); LYMPHOCYTES # (AUTO) 1.4 X 10^3 (1.0-4.0); LYMPHOCYTES % (AUTO) 35 % (12-44); MEAN CORPUSCULAR HEMOGLOBIN 37 PG (25-34); MEAN CORPUSCULAR HGB CONC 35 G/DL (32-36); MEAN CORPUSCULAR VOLUME 104 FL (80-99); MEAN PLATELET VOLUME 9.1 FL (7.4-10.4); MONOCYTES # (AUTO) 0.5 X 10^3 (0.0-1.0); MONOCYTES % (AUTO) 13 % (0-12); NEUTROPHILS % (AUTO) 49 % (42-75); PLATELET COUNT 157 10^3/uL (130-400); RED BLOOD COUNT 3.28 10^6/uL (4.35-5.85); RED CELL DISTRIBUTION WIDTH 12.2 % (10.0-14.5)
[2017-05-04 05:33] LABS: INR 1.1 (0.8-1.4); PROTHROMBIN TIME PATIENT 14.2 SEC (12.2-14.7)
[2017-05-04 05:48] LABS: ANION GAP 9 MMOL/L (5-14); BLOOD UREA NITROGEN 10 MG/DL (7-18); BUN/CREATININE RATIO 13; CALCIUM 8.1 MG/DL (8.5-10.1); CARBON DIOXIDE 25 MMOL/L (21-32); CHLORIDE 99 MMOL/L (98-107); CREATININE SERUM 0.75 MG/DL (0.60-1.30); GFR ESTIMATED > 60; GLUCOSE 78 MG/DL (70-105); POTASSIUM 4.2 MMOL/L (3.6-5.0); SODIUM 133 MMOL/L (135-145)
[2017-05-04] MEDS ORDERED: THIAMINE 100 MG (VITAMIN B-1) TAB PO SCH (07:00)
[2017-05-04] MEDS: CATHETER FLUSH 10 ML SYR IV SCH (07:00)
[2017-05-04] MEDS ORDERED: PANTOPRAZOLE 20 MG TABLET (PROTONIX) PO SCH (07:00)
[2017-05-04] MEDS ORDERED: MULTIVIT W/MINERALS TAB (THERAGRAN M) PO SCH (07:00)
[2017-05-04 07:47] VITALS: BP 120/80
[2017-05-04 08:07] VITALS: BP 125/82
--- NOTE | 2017-05-04 08:54 | Progress Note-Cardiology ---
Cardiology SOAP Progress Note Subjective: Sitting up in bed. States he feels good this morning. States he does feel as "anxious" as he did yesterday. No c/o CP, palpitations, syncope, dyspnea or near syncope. Objective: I&O/Vital Signs Vital Sign - Last 12Hours 05/03/17 05/04/17 05/04/17 05/04/17 21:00 00:00 00:28 01:00 Temp 98.3 Pulse 69 82 61 Resp 10 16 B/P (MAP) 134/94 (107) 111/63 (79) Pulse Ox 98 96 O2 Delivery Room Air Room Air Room Air 05/04/17 05/04/17 05/04/17 05/04/17 03:36 04:00 07:00 08:07 Temp 97.2 98.4 Pulse 62 64 66 Resp 16 16 B/P (MAP) 111/77 (88) 125/82 (96) Pulse Ox 98 98 O2 Delivery Room Air Room Air Room Air 05/04/17 08:15 O2 Delivery Room Air Intake and Output 05/04/17 00:00 Intake Total 1000 ml Output Total 1250 ml Balance -250 ml Weight (Pounds): 118 Weight (Ounces): 0.0 Weight (Calculated Kilograms): [id number] Constitutional: AAO x 3 Respiratory: No accessory muscle use, No respiratory distress, chest expansion is symmetric, chest is bilaterally symmetric, lungs clear to auscultation, other (prolonged expiratory phase) Cardiovascular: regular rate-rhythm, No JVD, No edema, tachycardia Gastrointestional: soft, round, audible bowel sounds Extremities: no lower extremity edema bilateral Neurologic/Psychiatric: grossly intact Skin: No rash, No ulcerations Results/Procedures: Labs Laboratory Tests 05/03/17 15:01: White Blood Count 6.8, Red Blood Count 3.60L, Hemoglobin 13.5, Hematocrit 37L, Mean Corpuscular Volume 103H, Mean Corpuscular Hemoglobin 38H, Mean Corpuscular Hemoglobin Concent 36, Red Cell Distribution Width 12.1, Platelet Count 187, Mean Platelet Volume 8.5, Neutrophils (%) (Auto) 77H, Lymphocytes (%) (Auto) 13 , Monocytes (%) (Auto) 9, Eosinophils (%) (Auto) 0, Basophils (%) (Auto) 0, Neutrophils # (Auto) 5.2, Lymphocytes # (Auto) 0.9L, Monocytes # (Auto) 0.6, Eosinophils # (Auto) 0.0, Basophils # (Auto) 0.0, Prothrombin Time 12.6, INR Comment 0.9, Sodium Level 128L, Potassium Level 4.3, Chloride Level 93L, Carbon Dioxide Level 27, Anion Gap 8, Blood Urea Nitrogen 8, Creatinine 0.75, Estimat Glomerular Filtration Rate > 60, BUN/Creatinine Ratio 11, Glucose Level 90, Calcium Level 8.9, Total Bilirubin 0.8, Aspartate Amino Transf (AST/SGOT) 28, Alanine Aminotransferase (ALT/SGPT) 20, Alkaline Phosphatase 82, Total Protein 7.5, Albumin 4.1, Serum Alcohol 51H 05/03/17 15:25: Thyroid Stimulating Hormone (TSH) 0.53 05/04/17 04:30: White Blood Count 4.0L, Red Blood Count 3.28L, Hemoglobin 12.1L, Hematocrit 34L , Mean Corpuscular Volume 104H, Mean Corpuscular Hemoglobin 37H, Mean Corpuscular Hemoglobin Concent 35, Red Cell Distribution Width 12.2, Platelet Count 157, Mean Platelet Volume 9.1, Neutrophils (%) (Auto) 49, Lymphocytes (%) (Auto) 35, Monocytes (%) (Auto) 13H, Eosinophils (%) (Auto) 3, Basophils (%) ( Auto) 1, Neutrophils # (Auto) 2.0, Lymphocytes # (Auto) 1.4, Monocytes # (Auto) 0.5, Eosinophils # (Auto) 0.1, Basophils # (Auto) 0.0, Prothrombin Time 14.2, INR Comment 1.1, Sodium Level 133L, Potassium Level 4.2, Chloride Level 99, Carbon Dioxide Level 25, Anion Gap 9, Blood Urea Nitrogen 10, Creatinine 0.75, Estimat Glomerular Filtration Rate > 60, BUN/Creatinine Ratio 13, Glucose Level 78, Calcium Level 8.1L Laboratory Tests 05/03/17 15:01 05/04/17 04:30 A/P: Assessment: Newly diagnosed atrial tach/flutter with 2:1 AV conduction on 05/03/17. In NSR with PACs on 05/04/17 On apixaban for stroke prophylaxis Mild hyponatremia of unclear etiology, improved with NS infusion, [facility] of 05/[facility]/17: LVEF 55-60%, PASP WNL MPI of 04/15/15 does not show myocard ischemia or infarction; LVEF is 66% COPD Chronic tobacco use, cessation advised Hypertension Degenerative disc disease of the cervical spine Chronic ETOH abuse - cessation advised Right sided chest pain following a non-syncopal fall last week (reproducible with palpation) Plan: * Continue Beta-bon for vent rate control * Continue Apixaban for stroke prophylaxis * We have advised cessation of tobacco and alcohol use * Monitor labs * TSH 0.53 on lab of 05-04-17 * OK to discharge home from cardiac stand point * Discussed the importance of compliance with medications and f/u * F/U appt next week Physician Assessment Physician Assessment No cp or palp or syncope. Feels better than yesterday and wishes to go home Lungs: scattered wheezes and somewhat increase exp phase Cor: reg with occ irreg Ext: no c/c/e A&R: * As documented in our note above that I updated (italics) and as noted below * I discussed the rationale, pros and cons of his new meds and advised compliance (unless there are clear side effects) * BB for rate control * Apixaban for stroke prophylaxis * D/c lisinopril to provide room on bp for BB * Outpatient f/u advised * Advised avoidance of alcohol and tobacco use * Management of COPD, reactive airways, and hyponatremia is with the Med [facility] Clinical Quality Measures Smoking Cessation Counseling: Counseling-Symptomatic: 3-10 Minutes DEDRA PERDUE [employer] SPECIALIST May 04, 2017 08:54 NIRAV AUGUSTIN MD [facility] May 04, 2017 09:01
[2017-05-04] MEDS ORDERED: APIX5TAB PO (08:57)
[2017-05-04] MEDS ORDERED: METO-395 PO (08:57)
[2017-05-04] MEDS ORDERED: meTOprolol SUCCINATE 100 MG (TOPROL XL) TAB PO SCH ×2 (09:00)
[2017-05-04] MEDS ORDERED: NON-FORMULARY MEDICATION 1 EA EA (Cetirizine HCl (Zyrtec) 10 MG) PO SCH (09:00)
[2017-05-04] MEDS ORDERED: LORATADINE (CLARITIN) 10 MG TAB PO SCH (09:00)
[2017-05-04] MEDS ORDERED: APIXABAN 5 MG (ELIQUIS) TABLET PO SCH (09:00)
--- NOTE | 2017-05-04 12:18 | Discharge Summary-Hospitalist ---
Diagnosis/Chief Complaint Date of Admission May 03, 2017 at 14:38 Date of Discharge May 04, 2017 at 10:01 Admission Diagnosis a flutter with RVR Discharge Diagnosis (1) Atrial flutter with rapid ventricular response Status: Acute Assessment & Plan: New onset, convert overnight Eliquis for anticoagulation Cardiology consulted, appreciate recs TSH normal metoprolol for rate control Echo revealed no valvular abnormalities (2) COPD (chronic obstructive pulmonary disease) Status: Chronic Assessment & Plan: Slight wheezing on exam Will resume home meds (Symbicort) On room air No increased cough or hypoxia- no signs of exacerbation (3) Essential (primary) hypertension Assessment & Plan: Metoprolol (4) Alcohol abuse Status: Acute Assessment & Plan: CIWA assess (5) Tobacco abuse Assessment & Plan: Recommended cessation Discharge Summary Consultations Dr Martinez- Cardiology Discharge Physical Examination Allergies: Coded Allergies: No Known Drug Allergies (Verified , 01/28/08) Vitals & I&Os Vital Signs Date Time Temp Pulse Resp B/P (MAP) Pulse Ox O2 Delivery O2 Flow Rate FiO2 05/04/17 09:58 05/04/17 08:15 Room Air 05/04/17 08:07 98.4 66 16 98 05/03/17 16:03 21 Hospital Course Pt is a 57yoCM with a PMH of HTN, COPD, and alcohol abuse who presented as a direct admission for new onset a flutter with RVR. He was admitted to the ICU and started on a cardizem gtt. He converted overnight to sinus rhythm. He was started on Eliquis for anticoagulation per Dr Martinez and continued on Metoprolol for rate control which he tolerated well. Of not he does drink 3-5 beers per day. I strongly recommended cessation in light of his new anticoagulation status and discussed the risk of bleeding with him which he acknowledged. I personally called and discussed my concerns with Dr. Rodgers who will follow him as an outpatient. He is to follow up with Dr Rodgers and Dr Martinez. Labs (last 24 hrs) Laboratory Tests 05/03/17 15:01: White Blood Count 6.8, Red Blood Count 3.60L, Hemoglobin 13.5, Hematocrit 37L, Mean Corpuscular Volume 103H, Mean Corpuscular Hemoglobin 38H, Mean Corpuscular Hemoglobin Concent 36, Red Cell Distribution Width 12.1, Platelet Count 187, Mean Platelet Volume 8.5, Neutrophils (%) (Auto) 77H, Lymphocytes (%) (Auto) 13 , Monocytes (%) (Auto) 9, Eosinophils (%) (Auto) 0, Basophils (%) (Auto) 0, Neutrophils # (Auto) 5.2, Lymphocytes # (Auto) 0.9L, Monocytes # (Auto) 0.6, Eosinophils # (Auto) 0.0, Basophils # (Auto) 0.0, Prothrombin Time 12.6, INR Comment 0.9, Sodium Level 128L, Potassium Level 4.3, Chloride Level 93L, Carbon Dioxide Level 27, Anion Gap 8, Blood Urea Nitrogen 8, Creatinine 0.75, Estimat Glomerular Filtration Rate > 60, BUN/Creatinine Ratio 11, Glucose Level 90, Calcium Level 8.9, Total Bilirubin 0.8, Aspartate Amino Transf (AST/SGOT) 28, Alanine Aminotransferase (ALT/SGPT) 20, Alkaline Phosphatase 82, Total Protein 7.5, Albumin 4.1, Serum Alcohol 51H 05/03/17 15:25: Thyroid Stimulating Hormone (TSH) 0.53 05/04/17 04:30: White Blood Count 4.0L, Red Blood Count 3.28L, Hemoglobin 12.1L, Hematocrit 34L , Mean Corpuscular Volume 104H, Mean Corpuscular Hemoglobin 37H, Mean Corpuscular Hemoglobin Concent 35, Red Cell Distribution Width 12.2, Platelet Count 157, Mean Platelet Volume 9.1, Neutrophils (%) (Auto) 49, Lymphocytes (%) (Auto) 35, Monocytes (%) (Auto) 13H, Eosinophils (%) (Auto) 3, Basophils (%) ( Auto) 1, Neutrophils # (Auto) 2.0, Lymphocytes # (Auto) 1.4, Monocytes # (Auto) 0.5, Eosinophils # (Auto) 0.1, Basophils # (Auto) 0.0, Prothrombin Time 14.2, INR Comment 1.1, Sodium Level 133L, Potassium Level 4.2, Chloride Level 99, Carbon Dioxide Level 25, Anion Gap 9, Blood Urea Nitrogen 10, Creatinine 0.75, Estimat Glomerular Filtration Rate > 60, BUN/Creatinine Ratio 13, Glucose Level 78, Calcium Level 8.1L Pending Labs Laboratory Tests 05/04/17 04:30: White Blood Count 4.0, Red Blood Count 3.28, Hemoglobin 12.1, Hematocrit 34, Mean Corpuscular Volume 104, Mean Corpuscular Hemoglobin 37, Mean Corpuscular Hemoglobin Concent 35, Red Cell Distribution Width 12.2, Platelet Count 157, Mean Platelet Volume 9.1, Neutrophils (%) (Auto) 49, Lymphocytes (%) (Auto) 35, Monocytes (%) (Auto) 13, Eosinophils (%) (Auto) 3, Basophils (%) (Auto) 1, Neutrophils # (Auto) 2.0, Lymphocytes # (Auto) 1.4, Monocytes # (Auto) 0.5, Eosinophils # (Auto) 0.1, Basophils # (Auto) 0.0, Prothrombin Time 14.2, INR Comment 1.1, Sodium Level 133, Potassium Level 4.2, Chloride Level 99, Carbon Dioxide Level 25, Anion Gap 9, Blood Urea Nitrogen 10, Creatinine 0.75, Estimat Glomerular Filtration Rate > 60, BUN/Creatinine Ratio 13, Glucose Level 78, Calcium Level 8.1 Discharge Home Medications: Active Scripts Active Metoprolol Succinate 100 Mg Tab.er.24h 100 Mg PO DAILY Eliquis (Apixaban) 5 Mg Tablet 5 Mg PO BID Reported Zyrtec (Cetirizine HCl) 10 Mg Tablet 10 Mg PO DAILY Symbicort 160-4.5 Mcg Inhaler (Budesonide/Formoterol Fumarate) 10.2 Gm Hfa.aer.ad 2 Puff IH BID Trazodone HCl 100 Mg Tablet 100 Mg PO HS Clonazepam 1 Mg Tablet 1 Mg PO HS Hydrocodon-Acetaminoph 7.5-325 (Hydrocodone/Acetaminophen) 1 Each Tablet 1 Tab PO Q6H PRN Omeprazole 20 Mg Tablet.dr 20 Mg PO DAILY Proair Hfa (Albuterol Sulfate) 8.5 Gm Hfa.aer.ad 1-2 Puff IH Q4H PRN Instructions to patient/family Please see electronic discharge instructions given to patient. Clinical Quality Measures DVT/VTE Risk/Contraindication: Risk Factor Score Per Nursin RFS Level Per Nursing on Admit: 2=Moderate Smoking Cessation Counseling: Counseling-Symptomatic: 3-10 Minutes Copy Copies To 1: NIRAV MARTINEZ MD FACP FACC CCDS; ARAM RODGERS DO Problem Qualifiers (1) COPD (chronic obstructive pulmonary disease): COPD type: unspecified COPD Qualified Codes: J44.9 - Chronic obstructive pulmonary disease, unspecified GIAN ZAMAN MD May 04, 2017 12:18
== END 2017-05-04 10:01 | disposition home or self-care (01) | DRG 309 ==
LOC: ICU 14:38
PROVIDERS: ADMIT Family Medicine; ATTEND Family Medicine
DX: I48.92 Unspecified atrial flutter (principal); E87.1 Hypo-osmolality and hyponatremia; J44.9 Chronic obstructive pulmonary disease, unspecified; I10 Essential (primary) hypertension; F10.10 Alcohol abuse, uncomplicated; F17.210 Nicotine dependence, cigarettes, uncomplicated; R07.9 Chest pain, unspecified; M50.33 Other cervical disc degeneration, cervicothoracic region
CPT/HCPCS: 36415; 80048; 80053; 80320; 84443; 85025; 85610; 93005; 93306

== ENCOUNTER → 2017-06-05 | Outpatient (CLI) | payer BC, MEDICARE ==
[~2017-06-05] MED LIST changes: +APIX5TAB PO; +BUDE10.2 IH; +CATHETER FLUSH 10 ML SYR IV PRN; +CETI10TA20 PO; +CLON1TAB3 PO; +HYDR-3816 PO; +LISI40TA PO; +MELO7.5T46 PO; +METO-395 PO; +REGADENOSON 0.4 MG/5 ML SYR (LEXISCAN) IV ONE; +TRAZ100T92 PO
[2017-06-05 09:50] VITALS: BP 146/85
--- NOTE | 2017-06-05 17:00 | STRESS TEST ---
DATE OF SERVICE: 06/05/2017 RESTING AND POST REGADENOSON TECHNETIUM-99M TETROFOSMIN SPECT CT IMAGING ORDERING PHYSICIAN: Brigido Martinez MD, SUKHDEV, EM, FACC Baseline images were carried out after injection of 10.75 mCi of technetium-99m Tetrofosmin. This was followed by 0.4 mg regadenoson and 30.93 mCi technetium-99m Tetrofosmin for stress imaging. The electrocardiogram showed sinus rhythm at baseline. Sinus arrhythmia and isolated premature atrial contractions were seen. The electrocardiogram did not change significantly with the regadenoson infusion. The patient tolerated the procedure well. Review of images at rest and following stress does not indicate any significant perfusion defects consistent with significant myocardial ischemia or infarction. Gated images show normal global left ventricular systolic function with normal regional wall motion. Left ventricular ejection fraction is calculated to be 54%. Left ventricular end diastolic volume is 62 mL. TID is absent (1.08). CONCLUSIONS: 1. No evidence of any significant myocardial ischemia or infarction on this study. 2. Normal regional wall motion. 3. Normal global left ventricular systolic function with a calculated ejection fraction of 54%. Job ID: [id number] DocumentID: [id number] Dictated Date: 06/05/2017 16:26:07 Rectangular [employer] Cooper Date: 06/05/2017 16:59:40 Dictated By: BRIGIDO MARTINEZ MD, SUKHDEV, MISP, MISC,
== END ==
LOC: CARD 07:46
PROVIDERS: ATTEND Internal Medicine Cardiovascular Disease
DX: I48.0 Paroxysmal atrial fibrillation (principal); R06.02 Shortness of breath; J43.8 Other emphysema; Z72.0 Tobacco use
CPT/HCPCS: 78452; 93017

== ENCOUNTER 2017-11-10 15:34 | Emergency (ER) | payer BC, MEDICARE ==
[~2017-11-10] VITALS: Ht 172.7 cm; Wt 58.1 kg
[~2017-11-10 15:34] MED LIST changes: -CATHETER FLUSH 10 ML SYR IV PRN; -CLON1TAB3 PO; +CLON1TAB4 PO; +HYDR-34 PO; -HYDR-3816 PO; -REGADENOSON 0.4 MG/5 ML SYR (LEXISCAN) IV ONE; +TRAZ-190 PO; -TRAZ100T92 PO
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
[2017-11-10 15:54] LABS: BASOPHILS % (AUTO) 0 % (0-10); EOSINOPHILS % (AUTO) 0 % (0-10); HEMATOCRIT 31 % (40-54); HEMOGLOBIN 12.3 G/DL (13.3-17.7); LYMPHOCYTES # (AUTO) 0.2 X 10^3 (1.0-4.0); LYMPHOCYTES % (AUTO) 1 % (12-44); MEAN CORPUSCULAR HEMOGLOBIN 37 PG (25-34); MEAN CORPUSCULAR HGB CONC 40 G/DL (32-36); MEAN CORPUSCULAR VOLUME 93 FL (80-99); MONOCYTES # (AUTO) 1.1 X 10^3 (0.0-1.0); MONOCYTES % (AUTO) 6 % (0-12); NEUTROPHILS # (AUTO) 17.9 X 10^3 (1.8-7.8); NEUTROPHILS % (AUTO) 93 % (42-75); RED BLOOD COUNT 3.32 10^6/uL (4.35-5.85); RED CELL DISTRIBUTION WIDTH 12.4 % (10.0-14.5); WHITE BLOOD COUNT 19.2 10^3/uL (4.3-11.0)
[2017-11-10 15:59] LABS: PLATELET COUNT 21 10^3/uL (130-400)
[2017-11-10 16:09] LABS: PROTHROMBIN TIME PATIENT 22.4 SEC (12.2-14.7)
[2017-11-10 16:11] LABS: ALANINE AMINOTRANSFERASE 47 U/L (0-55); ALBUMIN 2.9 GM/DL (3.2-4.5); ALKALINE PHOSPHATASE 107 U/L (40-136); AMMONIA 19 UMOL/L (11-32); BUN/CREATININE RATIO 14; CALCIUM 8.3 MG/DL (8.5-10.1); CARBON DIOXIDE 14 MMOL/L (21-32); CHLORIDE 81 MMOL/L (98-107); CREATININE SERUM 6.45 MG/DL (0.60-1.30); GFR ESTIMATED 9; GLUCOSE 74 MG/DL (70-105); POTASSIUM 5.6 MMOL/L (3.6-5.0); TOTAL PROTEIN 6.4 GM/DL (6.4-8.2)
[2017-11-10 16:19] VITALS: BP 111/75
[2017-11-10 16:23] LABS: SODIUM 115 MMOL/L (135-145)
[2017-11-10 16:26] LABS: BILIRUBIN,URINE NEGATIVE (NEGATIVE); CLARITY,URINE VERY CLOUDY; COLOR,URINE AMBER; GLUCOSE, URINE (UA) NEGATIVE (NEGATIVE); KETONES,URINE NEGATIVE (NEGATIVE); LEUKOCYTE ESTERASE ,URINE 3+ (NEGATIVE); NITRITE,URINE NEGATIVE (NEGATIVE); PH,URINE 5 (5-9); PROTEIN,URINE 3+ (NEGATIVE); UROBILINOGEN,URINE NORMAL (NORMAL)
[2017-11-10] MEDS ORDERED: NS IV 1000 ML 1,000 ML IV SCH ×2 (16:30→18:15)
[2017-11-10 16:31] LABS: AMPHETAMINE SCREEN, URINE POSITIVE (NEGATIVE); BARBITURATE SCREEN URINE NEGATIVE (NEGATIVE); BENZODIAZEPINES SCREEN URINE NEGATIVE (NEGATIVE); CANNABINOID SCREEN, URINE NEGATIVE (NEGATIVE); COCAINE SCREEN URINE NEGATIVE (NEGATIVE); METHADONE STAT NEGATIVE (NEGATIVE); METHAMPHETAMINE SCREEN URINE S NEGATIVE (NEGATIVE); OPIATE SCREEN URINE POSITIVE (NEGATIVE); OXYCODONE STAT NEGATIVE (NEGATIVE); PROPOXYPHENE STAT NEGATIVE (NEGATIVE); TRICYCLIC ANTIDEPRESSANTS SCRE NEGATIVE (NEGATIVE)
[2017-11-10 16:45] LABS: RBC,URINE 25-50 /HPF
[2017-11-10 16:46] LABS: BACTERIA,URINE MODERATE /HPF; SQUAMOUS EPITHELIAL CELL,UR 0-2 /HPF; WBC,URINE TNTC /HPF
--- NOTE | 2017-11-10 16:50 | Diagnostic Imaging Report ---
PROCEDURE: CT head without contrast. TECHNIQUE: Multiple contiguous axial images were obtained through the brain without the use of intravenous contrast. INDICATION: Headache and dizziness. COMPARISON: 02/29/2012. FINDINGS: Ventricles are normal in size, shape and position. There is no midline shift or mass effect. There is no hemorrhage or evidence of acute ischemia. The bony calvarium, visualized paranasal sinuses and mastoids are normal. IMPRESSION: Negative CT head. Dictated by: Dictated on workstation # [id number]
[2017-11-10] MEDS ORDERED: cefTRIAXone INJECTION 1,000 MG in NS (IVPB) 50 ML IV ONE (17:00)
[2017-11-10 17:02] LABS: NEUTROPHILS % (MANUAL) 88 %
[2017-11-10 17:03] LABS: BAND NEUTROPHILS 5 %; BASOPHILS % (MANUAL) 0 %; BURR CELLS SLIGHT; ELLIPT/OVALOCYTES MODERATE; EOSINOPHILS % (MANUAL) 0 %; HYPERSEGMENTED NEUT SLIGHT; LYMPHOCYTES % (MANUAL) 1 %; MONOCYTES % (MANUAL) 6 %; POIKILOCYTOSIS MODERATE; TOXIC GRANULATION/VACUOLAZATIO 1+
[2017-11-10 17:04] LABS: ROULEAUX MARKED
--- NOTE | 2017-11-10 17:04 | Diagnostic Imaging Report ---
INDICATION: Cough. COMPARISON: 04/08/2015. EXAMINATION: Frontal and lateral views of the chest were obtained. FINDINGS: Clear lungs, bilaterally. The heart is normal. There is no pneumothorax. The osseous structures are normal. IMPRESSION: Negative chest. Dictated by: Dictated on workstation # [id number]
[2017-11-10] MEDS ORDERED: cefTRIAXone INJECTION 2,000 MG in NS (IVPB) 50 ML IV ONE (17:15)
[2017-11-10 17:18] LABS: CREATINE KINASE 198 U/L (30-200)
[2017-11-10 17:23] VITALS: BP 123/77
[2017-11-10 17:44] LABS: MYOGLOBIN SERUM 1438.7 NG/ML (10.0-92.0)
[2017-11-10] MEDS ORDERED: VANCOMYCIN INJECTION 1,000 MG in NS (IVPB) 250 ML IV ONE (18:15)
--- NOTE | 2017-11-10 18:26 | Diagnostic Imaging Report ---
INDICATION: Abdominal pain. Renal failure. EXAMINATION: CT abdomen and pelvis without contrast, 11/10/2017. COMPARISON: None. FINDINGS: The lack of contrast limits evaluation. However, the right kidney is markedly prominent in appearance with perinephric stranding noted. Similar findings on the left, although not as pronounced. There is no nephrolithiasis on either side. No hydronephrosis. Ureter is somewhat difficult to follow along their entire course but no definite ureteral stone is appreciated. Urinary bladder wall demonstrates marked wall thickening which could be due to underdistention with cystitis not excluded. No free fluid in the pelvis. A prominent loop of bowel within the mid pelvis most likely a low-lying cecum. Appendix is not identified. There is marked atherosclerotic disease along the aorta and its branches. The liver and spleen are grossly unremarkable on this noncontrast examination as is the gallbladder. The adrenal glands are prominent, bilaterally, with nodules seen, bilaterally. The largest is on the right and better characterization with a pre and post contrast adrenal protocol CT could be performed on a nonemergent basis. There is a cystic lesion in the left upper quadrant, possibly emanating off of the tail of the pancreas but also inseparable from the adjacent kidney. This could also be further characterized with postcontrast imaging on a nonemergent basis. The visualized lung bases are unremarkable for an acute abnormality. Osseous structures demonstrate marked diffuse degenerative findings. IMPRESSION: 1. Marked perinephric fat stranding on the right more so than the left with enlargement of the right kidney. Pyelonephritis would be a primary consideration with other kidney disease not excluded without contrast. Clinical correlate and followup recommended. If patient is able, nonemergent postcontrast imaging to better evaluate the kidneys and the adrenal gland lesions and either pancreatic or left kidney lesion, as discussed above. 2. Wall thickening of the urinary bladder, possibly on the basis of cystitis or underdistention. Other findings as above. Dictated by: Dictated on workstation # [id number]
[2017-11-10] MEDS ORDERED: meTOproloL SUCCINATE 50 MG (TOPROL XL) TAB PO ONE (19:56)
[2017-11-10] MEDS ORDERED: meTOprolol SUCCINATE 100 MG (TOPROL XL) TAB PO ONE (20:00)
[2017-11-10] MEDS ORDERED: HYDROcodone/APAP 10 MG/325 MG (LORTAB) TAB PO ONE (20:00)
[2017-11-10 20:09] VITALS: BP 120/84
== END 2017-11-10 20:09 | disposition short-term general hospital (02) ==
LOC: EDUNIT# 15:34 → ER 15:36
DX: A41.9 Sepsis, unspecified organism (principal); N17.9 Acute kidney failure, unspecified; D69.6 Thrombocytopenia, unspecified; D72.829 Elevated white blood cell count, unspecified; E87.1 Hypo-osmolality and hyponatremia; F32.9 Major depressive disorder, single episode, unspecified; F15.90 Other stimulant use, unspecified, uncomplicated; I10 Essential (primary) hypertension; J44.9 Chronic obstructive pulmonary disease, unspecified; K21.9 Gastro-esophageal reflux disease without esophagitis; Z87.2 Personal history of diseases of the skin and subcutaneous tissue; F17.210 Nicotine dependence, cigarettes, uncomplicated; Z98.890 Other specified postprocedural states
CPT/HCPCS: 36415; 70450; 71046; 74176; 80053; 80306; 80320; 81000; 82140; 82550; 83605; 83874; 84484; 85007; 85027; 85379; 85610; 86618; 86666; 86668; 86757; 87040; 87077; 87088; 87186; 93005; 96361; 96365; 96367

== ENCOUNTER → 2019-09-16 | Outpatient (CLI) | payer BC, MEDICARE ==
[~2019-09-16] VITALS: Ht 57 cm; Wt 172.0 kg
[~2019-09-16] MED LIST changes: +ACHYD1T PO; +CATHETER FLUSH 10 ML SYR IV PRN; -CETI10TA20 PO; +CETI10TA21 PO; +CLON1TAB13 PO; -CLON1TAB4 PO; -HYDR-3820 PO; -METO-395 PO; +MTP100TCR PO; +REGADENOSON 0.4 MG/5 ML SYR (LEXISCAN) IV ONE; +SIMV20TA26 PO; -SIMV20TA3 PO; -TRAZ-190 PO; +TRAZ-227 PO
--- NOTE | 2019-09-16 15:20 | STRESS TEST ---
DATE OF SERVICE: 09/16/2019 RESTING AND POST REGADENOSON TECHNETIUM-99M TETROFOSMIN SPECT CT IMAGING ORDERING PHYSICIAN: Dr. Martinez. PRIMARY PHYSICIAN: Dr. Rodgers. CLINICAL DIAGNOSES: Shortness of breath, paroxysmal atrial fibrillation. Baseline images were carried out after injection of 10.14 mCi of technetium-99m Tetrofosmin. This was followed by 0.4 mg regadenoson and 32.6 mCi of technetium-99m Tetrofosmin. The electrocardiogram showed sinus rhythm at baseline. It did not change significantly with the regadenoson infusion. The patient tolerated the procedure well. Review of images at rest and following stress does not indicate any significant perfusion defects consistent with significant myocardial ischemia or infarction. Gated images show normal global left ventricular systolic function with normal regional wall motion. Left ventricular ejection fraction is calculated to be 65%. CONCLUSIONS: 1. No evidence of any significant myocardial ischemia or infarction on this study. 2. Normal regional wall motion. 3. Normal global left ventricular systolic function with a calculated ejection fraction of 65%. Job ID: [id number] DocumentID: [id number] Dictated Date: 09/16/2019 14:41:58 Online Tutor Date: 09/16/2019 15:19:54 Dictated By: NIRAV MARTINEZ MD, MA, FACP, FACC,
== END ==
LOC: CARD 11:16
PROVIDERS: ATTEND Internal Medicine Cardiovascular Disease
DX: J44.9 Chronic obstructive pulmonary disease, unspecified (principal); I48.0 Paroxysmal atrial fibrillation; N18.4 Chronic kidney disease, stage 4 (severe)
CPT/HCPCS: 78452; 93017

== ENCOUNTER → 2019-09-18 | Outpatient (CLI) | payer BC, MEDICARE ==
[~2019-09-18] MED LIST changes: -CATHETER FLUSH 10 ML SYR IV PRN; -REGADENOSON 0.4 MG/5 ML SYR (LEXISCAN) IV ONE
== END ==
LOC: CARD 11:22
PROVIDERS: ATTEND Internal Medicine Cardiovascular Disease
DX: J43.8 Other emphysema (principal); I48.0 Paroxysmal atrial fibrillation; N18.4 Chronic kidney disease, stage 4 (severe); I35.0 Nonrheumatic aortic (valve) stenosis
CPT/HCPCS: 93306

== ENCOUNTER → 2020-03-01 | Outpatient (CLI) | payer BC, MEDICARE ==
[~2020-03-01] MED LIST changes: -CETI10TA21 PO; +CETI10TA49 PO
--- NOTE | 2020-03-01 14:23 | Diagnostic Imaging Report ---
PROCEDURE: MR imaging cervical spine without contrast. TECHNIQUE: Multiplanar, multisequence MR imaging of the cervical spine was performed without contrast. INDICATION: Cervical spondylosis. Comparison made with prior examination from 05/30/2007. FINDINGS: There are postsurgical changes of an anterior cervical disc fusion at C3-C4 and C6-C7. The vertebral body heights are well-maintained. The prevertebral soft tissues are within normal limits. The visualized portions of the spinal cord are normal in signal intensity and morphology. Posterior fossa is unremarkable. At C2-C3 there is no spinal or neural foraminal encroachment. At C3-C4 there is bilateral uncal vertebral joint hypertrophy left greater than right. There is moderate left and mild right neural foraminal encroachment. At C4-C5 there is some annular bulging and bilateral uncovertebral joint hypertrophy right greater than left. There is mild spinal stenosis. Moderate right and mild left neural foraminal encroachment. At C5-C6 there is no significant spinal or neural foraminal encroachment. At C6-C7 there is no spinal nor neural foraminal encroachment. C7-T1 there is no spinal nor neural foraminal encroachment. IMPRESSION: Stable post surgical changes in the anterior cervical fusion at C3-C4 and C6-C7 as described. Otherwise diffuse cervical spondylosis and degenerative disc disease as described. Dictated by: Dictated on workstation # [id number]
== END ==
LOC: RAD 13:15
PROVIDERS: ATTEND Internal Medicine
DX: M50.221 Other cervical disc displacement at C4-C5 level (principal); M47.812 Spondylosis without myelopathy or radiculopathy, cervical region; M48.02 Spinal stenosis, cervical region; M89.38 Hypertrophy of bone, other site; J44.9 Chronic obstructive pulmonary disease, unspecified; Z98.1 Arthrodesis status
CPT/HCPCS: 72141

== ENCOUNTER → 2021-11-29 | Outpatient (CLI) | payer BC, MEDICARE ==
[~2021-11-29] MED LIST changes: -LISI-552 PO; +LISI20TA26 PO; -LISI40TA PO; +LISI40TA9 PO; +OMEP20TA56 PO; -OMEP20TA7 PO
--- NOTE | 2021-11-30 08:44 | Diagnostic Imaging Report ---
CT CHEST SCREENING WO TECHNIQUE: Low-dose unenhanced CT of the chest was performed according to the screening protocol. Coronal MIP and sagittal MPR reformats are created. Automatic exposure controls were utilized to keep dose as low as reasonably achievable. INDICATION: 60 pack year history of smoking. Quit smoking 4 months ago. COMPARISON: CT abdomen pelvis from 11/10/2017. FINDINGS: Pulmonary findings: No abnormality in the trachea. No pneumonia or edema. There are no suspicious pulmonary nodules. Extrapulmonary findings: No pericardial or pleural effusion. No axillary or mediastinal lymphadenopathy. Heart is normal in size. Moderate coronary artery consultation. Normal caliber thoracic aorta with atherosclerotic calcifications. Limited assessment upper abdomen shows low-attenuation adrenal nodule is stable and indicative of benign adenoma. IMPRESSION: Baseline screening exam is negative for features of clinically active lung cancer. Lung-RADS category: 1 - Negative Recommendations: Continued annual screening with low-dose CT in 12 months. Dictated by: Dictated on workstation # [id number]
== END ==
LOC: RAD 11:15
PROVIDERS: ATTEND Internal Medicine
DX: Z12.2 Encounter for screening for malignant neoplasm of respiratory organs (principal); Z87.891 Personal history of nicotine dependence
CPT/HCPCS: 71271

== ENCOUNTER → 2022-11-21 | Outpatient (CLI) | payer BC, MEDICARE ==
[~2022-11-21] VITALS: Ht 172 cm; Wt 57.0 kg
[~2022-11-21] MED LIST changes: +ALBU8.5H6 IH; +CATHETER FLUSH 10 ML SYR IVP PRN; +REGADENOSON 0.4 MG/5 ML SYR (LEXISCAN) IV ONE; -RT-ALBUINH IH
[2022-11-21 13:28] VITALS: BP 128/69
== END ==
LOC: CARD 11:26
PROVIDERS: ATTEND Internal Medicine Cardiovascular Disease
DX: R06.09 Other forms of dyspnea (principal)
CPT/HCPCS: 78452; 93017

== ENCOUNTER → 2022-12-07 | Outpatient (CLI) | payer BC, MEDICARE ==
[~2022-12-07] MED LIST changes: -CATHETER FLUSH 10 ML SYR IVP PRN; -REGADENOSON 0.4 MG/5 ML SYR (LEXISCAN) IV ONE
--- NOTE | 2022-12-07 10:59 | Diagnostic Imaging Report ---
CT Lung Screening INDICATION: A 60 pack year smoking history TECHNIQUE: Noncontrast, low-dose CT imaging performed according to the lung cancer screening protocol. Auto Exposure Controls were utilize during the CT exam to meet ALARA standards for radiation dose reduction. COMPARISON: Compared 11/29/2021 FINDINGS:No lung mass or suspicious pulmonary nodule. No findings of lung cancer. No pneumonia, failure, effusion or pneumothorax. There is no thoracic adenopathy. There are coronary artery atherosclerotic vascular calcifications. The aorta nonaneurysmal. The visible upper abdomen nonacute. IMPRESSION: No findings of lung cancer. Continued annual low-dose CT screening. Follow-up in one year's time recommended. LUNG-RADS CATEGORY: Category 1 MODIFIER: None OTHER SIGNIFICANT FINDINGS: None Dictated by: Dictated on workstation # [id number]
== END ==
LOC: RAD 09:48
PROVIDERS: ATTEND Internal Medicine
DX: Z12.2 Encounter for screening for malignant neoplasm of respiratory organs (principal); F17.210 Nicotine dependence, cigarettes, uncomplicated
CPT/HCPCS: 71271

== ENCOUNTER → 2022-12-08 | Outpatient (CLI) | payer BC, MEDICARE | LOC: CARD 13:00 | PROVIDERS: ATTEND Nurse Practitioner Family | DX: I35.1 Nonrheumatic aortic (valve) insufficiency (principal) | CPT/HCPCS: 93306 ==

== ENCOUNTER 2023-01-03 05:42 | Outpatient (CLI) | payer BC, MEDICARE ==
[~2023-01-03] VITALS: Ht 170.1 cm; Wt 55.9 kg
[2023-01-03] MEDS ORDERED: HYDR-3820 PO (10:28)
[2023-01-03] MEDS ORDERED: FERR-84 PO (10:28)
[2023-01-03] MEDS ORDERED: MAGN250T13 PO (10:28)
[2023-01-03] MEDS ORDERED: POTA-330 PO (10:28)
[2023-01-03] MEDS ORDERED: ASCO500C18 PO (10:28)
[2023-01-03] MEDS ORDERED: FOLI1TAB33 PO (10:28)
== END 2023-01-03 10:42 | disposition home or self-care (01) ==
LOC: PREOP 05:42
PROVIDERS: ATTEND Internal Medicine
DX: Z01.818 Encounter for other preprocedural examination (principal)

== ENCOUNTER 2023-01-12 08:22 | Day surgery (SDC) | payer BC, MEDICARE ==
--- NOTE | 2023-01-01 15:48 | HISTORY AND PHYSICAL ---
DATE OF SERVICE: 01/12/2023 COLONOSCOPY HISTORY AND PHYSICAL HISTORY OF PRESENT ILLNESS: The patient is a 62-year-old white male referred by Dr. Rodgers for screening colonoscopy. He is deemed to be of higher than average risk as his mother was diagnosed with colon cancer in her mid 60s. He had one other colonoscopy 10 years ago. This revealed one hyperplastic polyp and no other abnormalities with no evidence for diverticular disease. He denies abdominal pain, change in bowel habits, bright red blood per rectum, melena or change in weight over the past several months. PAST MEDICAL HISTORY: Significant for paroxysmal atrial fibrillation for which she is on lower dose Eliquis 2.5 mg b.i.d. and metoprolol. He has had no symptomatic recurrences. He is disabled secondary to cervical radiculopathy with myelopathy and upper extremity weakness, left worse than right. He has a history of reflux that he reports is well controlled on omeprazole daily. He has a history of likely COPD, longstanding smoker. He reports that he actually quit smoking 2 years ago with a 40+ pack year history. PAST SURGICAL HISTORY: Significant for cervical fusion based surgery. 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 No significant alcohol intake noted. FAMILY HISTORY: In addition to his mother having had colon cancer in her mid 60s, had a brother with probable lung cancer who at the age of 45 was also a smoker and father of lung cancer at the age of 73 with smoking history. REVIEW OF SYSTEMS: CONSTITUTIONAL: Denies night sweats, chills or fever. He has lost fair amount of weight last year, but this has stabilized. GASTROINTESTINAL: As noted in the HPI. PULMONARY: Denies cough. Has no significant wheezing as long as he takes his inhaler. No dyspnea at rest and no dyspnea with regular exertion noted. CARDIOVASCULAR: Denies orthopnea, PND, pedal edema and has had no recent sensations of atrial fibrillation, heart racing, etc. PHYSICAL EXAMINATION: GENERAL: Reveals a white male, appeared to be in no acute distress. VITAL SIGNS: Blood pressure 120/70, weight 123 pounds, heart rate 66 and regular. HEENT: Unremarkable. Sclerae nonicteric. CHEST: Clear. CARDIOVASCULAR: Reveals a regular rate and rhythm without murmur, S3, or S4. ABDOMEN: Soft, supple without mass, organomegaly, or tenderness. EXTREMITIES: Reveal no cyanosis, clubbing or edema. ASSESSMENT AND PLAN: The patient is being set up for screening colonoscopy, deemed to be of higher than average risk due to family history of colon cancer, index case being his mother diagnosed at the age of 65. Prep instructions were given and questions were answered. The patient for insurance purposes requested this be done before 01/20/2023 and no spots were available at [facility] after calling and trying to add him on the schedule. I was unable to do so prior to this, so he is being done at [facility]. I thank you for the referral of this pleasant gentleman. Job ID: [id number] DocumentID: [id number] Dictated Date: 01/01/2023 15:10:27 Container Finisher Date: 01/01/2023 15:41:00 Dictated By: DOE TORRES MD
[~2023-01-12] VITALS: Ht 182.9 cm; Wt 55.9 kg
[~2023-01-12 08:22] MED LIST changes: +ASCO500C18 PO; +FERR-84 PO; +FOLI1TAB33 PO; +HYDR-3820 PO; +MAGN250T13 PO; +POTA-330 PO
[2023-01-12] MEDS ORDERED: LACTATED RINGERS 1,000 ML 1,000 ML IV STA (08:24)
[2023-01-12 08:31] VITALS: BP 130/76
--- NOTE | 2023-01-12 08:39 | Pre-Op Note & Conscious Sedat ---
Pre-Operative Progress Note Date H&P Reviewed: Jan 12, 2023 Time H&P Reviewed: 08:38 History & Physical: H&P Reviewed, Patient Examed, No changes noted Pre-Op Diagnosis: screening Moderate Sedation PreProcedure ASA Score 3 Airway Lungs Heart ASA score ASA 1: a normal healthy patient ASA 2: a patient with a mild systemic disease (mid diabetes, controlled hypertension, obesity ASA 3: a patient with a severe systemic disease that limits activity (angina, COPD, prior Myocardial infarction) ASA 4: a patient with an incapacitating disease that is a constant threat to life (CHF, renal failure) ASA 5: a moribund patient not expected to survive 24 hrs. (ruptured aneurysm) ASA 6: a declared brain- patient whose organs are being harvested. For emergent operations, add the letter E after the classification Mallampati Classification Grade 1 Sedation Plan Analgesia, Amnesia, Plan communicated to team members, Discussed options with patient/fam, Discussed risks with patient/fam The patient is an appropriate candidate to undergo the planned procedure, sedation, and anesthesia. The patient immediately re-assessed prior to indication. DOE TORRES MD Jan 12, 2023 08:39
[2023-01-12 10:15] VITALS: BP 168/83
--- NOTE | 2023-01-12 10:19 | Progress Note-Post Operative ---
Post-Procedure Note Physician (s)/Cotton Weigher (s) Physician DOE TORRES MD Pre-Procedure Diagnosis Pre-Procedure Diagnosis: screening Post-Procedure Diagnosis Post-operative diagnosis: Prior to undergoing colonoscopy digital rectal evaluation was performed. Anal suture tone was normal and the perianal reflexes intact. Did not palpate any evidence for prostatic tissue no nodularity was noted. No abnormalities noted on digital inspection anal canal or distal rectal vault. The colonoscope was then inserted into the rectum and under direct visualization advanced to the cecum. The cecum identified by the indication of the ileocecal valve photographic documentation was obtained. A careful inspection was made as the colonoscope was withdrawn. Quality the prep was good. Findings there are no evidence of internal/external hemorrhoids. Present the distal sigmoid colon was a 4 mm sessile polyp was photographed and biopsied and ablated with no subsequent blood loss. The sigmoid and descending colon as well as splenic flexure were unremarkable. No evidence for diverticular disease was noted. Present in the mid transverse colon was a 3 mm sessile polyp was photographed was only able to grasp it at the base there was cauterization throughout the entire base of the polyp but it was not submitted for histopathology as it would have just been a tiny piece of tissue at the base that likely did not contain the polyp there was no subsequent blood loss. The remainder the transverse colon hepatic flexure for which there is a very tight band ascending colon and cecum which was not visualized in its entirety were unremarkable. A/P 1. 2 polyps were cauterized for 1 tissue was not submitted from the mid transverse colon see above. Considering family history and incomplete cecal evaluation as long as there are no surprises on histopathology report would advocate repeat surveillance colonoscopy in 1 year. No other abnormalities noted on today's procedure. CC: Dr. Chet Rodgers DO. DOE TORRES MD Jan 12, 2023 10:18
[2023-01-12 10:27] VITALS: BP 172/88
[2023-01-12 10:58] VITALS: BP 172/88
--- NOTE | 2023-01-12 14:12 | Anesthesia-General Post-Op ---
MAC Patient Condition Mental Status/LOC: Same as Preop Cardiovascular: Satisfactory Nausea/Vomiting: Absent Respiratory: Satisfactory Pain: Controlled Complications: Absent Post Op Complications Complications None Follow Up Care/Instructions Patient Instructions None needed. Anesthesiology Discharge Order Discharge Order Patient is doing well, no complaints, stable vital signs, no apparent adverse anesthesia problems. No complications reported per nursing. CAR HOWELL CRNA Jan 12, 2023 14:12
== END 2023-01-12 11:20 | disposition home or self-care (01) ==
LOC: ENDO 08:22
PROVIDERS: ATTEND Internal Medicine
DX: Z12.11 Encounter for screening for malignant neoplasm of colon (principal); K63.5 Polyp of colon; Z87.891 Personal history of nicotine dependence